=== PATIENT | female | born 1955 | race Caucasian/White ===

== ENCOUNTER 2023-05-24 09:42 | Day surgery (SDC) | payer OTHER ==
[2023-05-20 10:03] VITALS: BMI 28.1
[2023-05-24] MEDS ORDERED: CELECOXIB 200 MG CAPSULE ONE (10:36)
[2023-05-24] MEDS ORDERED: CEFAZOLIN 2 GM in DEXTROSE 5%-WATER - 50 ML IVPB ONE (11:30)
[2023-05-24] MEDS ORDERED: CELECOXIB 200 MG CAPSULE PO ONE (11:30)
[2023-05-24] MEDS ORDERED: BUPIVACAINE LIPOSOME/PF (EXPAREL) 266 MG/20 ML VIAL ONE (12:38)
[2023-05-24] MEDS ORDERED: BUPIVACAINE HCL/PF 0.5% (5MG/ML) 10 ML VIAL ONE (12:38)
[2023-05-24] MEDS ORDERED: MIDAZOLAM HCL 2 MG/2 ML SINGLE DOSE VIAL ONE (12:38)
[2023-05-24] MEDS ORDERED: VANCOMYCIN 1,000 MG VIAL (RESTRICTED TO ID ONLY) ONE (12:39)
[2023-05-24] MEDS ORDERED: ceFAZolin SODIUM 1 GM VIAL ONE ×2 (12:39→13:17)
[2023-05-24] MEDS ORDERED: TRANEXAMIC ACID 1000 MG/10 ML VIAL IVPUSH ONE (13:00)
[2023-05-24] MEDS ORDERED: DEXAMETHASONE SOD PHOSPHATE 4 MG/1 ML VIAL ONE (13:17)
[2023-05-24] MEDS ORDERED: TRANEXAMIC ACID 1000 MG/10 ML VIAL ONE (13:17)
[2023-05-24] MEDS ORDERED: ONDANSETRON 4 MG/2 ML VIAL ONE (13:17)
[2023-05-24] MEDS ORDERED: PROPOFOL 20 ML ONE ×2 (13:33→13:51)
[2023-05-24] MEDS ORDERED: ONDANSETRON 4 MG/2 ML VIAL IVPUSH PRN (13:58)
[2023-05-24] MEDS ORDERED: oxyCODONE HCL 5 MG TABLET PO PRN (13:59)
[2023-05-24] MEDS ORDERED: LACTATED RINGERS SOLUTION 1,000 ML IV SCH (14:00)
[2023-05-24] MEDS ORDERED: VANCOMYCIN 1,000 MG VIAL (RESTRICTED TO ID ONLY) IVPB ONE (14:28)
[2023-05-24] MEDS ORDERED: ALBUTEROL SO4 HFA INHALER IH PRN (14:54)
[2023-05-24] MEDS ORDERED: BUDESONIDE/FORMETEROL FUMARATE 160/4.5 mcg INHALER IH PRN (14:54)
[2023-05-24] MEDS ORDERED: KETOROLAC TROMETHAMINE 30 MG/1 ML VIAL ONE (14:59)
[2023-05-24] MEDS ORDERED: ACETAMINOPHEN INJECTION 100 ML IVPB ONE (14:59)
[2023-05-24] MEDS: KETOROLAC TROMETHAMINE 30 MG/1 ML VIAL IVPUSH SCH ×3 (15:11→20:03)
[2023-05-24] MEDS: ACETAMINOPHEN 1000 MG/100 ML BAG IVPB ONE ×2 (15:14→17:14)
[2023-05-24] MEDS: oxyCODONE HCL 5 MG TABLET PO PRN (19:10)
[2023-05-24] MEDS: ACETAMINOPHEN 500 MG TABLET (FP) PO SCH (21:00)
[2023-05-24] MEDS ORDERED: SIMVASTATIN 5 MG PO SCH (22:00)
[2023-05-24] MEDS: SENNOSIDES/DOCUSATE COMBO (SENNA PLUS) TABLET (UD) PO SCH (22:13)
[2023-05-24] MEDS: CEFAZOLIN SODIUM 2 GM in DEXTROSE 5%-WATER 100 ML IVPB SCH (22:13)
[2023-05-24] MEDS: ATORVASTATIN CA 10 MG TABLET (FP) PO SCH (22:13)
[2023-05-24] MEDS: oxyCODONE HCL 10 MG SUSTAINED ACTING TABLET PO SCH (22:14)
[2023-05-25] MEDS: oxyCODONE HCL 5 MG TABLET PO PRN ×3 (01:13→13:47)
[2023-05-25] MEDS: ACETAMINOPHEN 500 MG TABLET (FP) PO SCH ×3 (03:38→22:31)
[2023-05-25] MEDS: CEFAZOLIN SODIUM 2 GM in DEXTROSE 5%-WATER 100 ML IVPB SCH (06:02)
[2023-05-25 08:26] LABS: HEMATOCRIT 40.7 % (32.4-45.2); HEMOGLOBIN 13.6 G/dL (10.7-15.3); MCH 31.7 pg (25.7-33.7); MCHC 33.5 g/dl (32.0-36.0); MEAN CELL VOLUME 94.6 fl (80-96); MEAN PLT VOLUME 7.7 fl (7.5-11.1); PLATELET COUNT 235.5 10^3/uL (134-434); RDW 12.7 % (11.6-15.6); WHITE BLOOD COUNT 15.3 10^3/uL (4.0-10.8)
[2023-05-25] MEDS: SENNOSIDES/DOCUSATE COMBO (SENNA PLUS) TABLET (UD) PO SCH ×2 (10:08→21:15)
[2023-05-25] MEDS: ASPIRIN 325 MG TABLET PO SCH (10:09)
[2023-05-25] MEDS: oxyCODONE HCL 10 MG SUSTAINED ACTING TABLET PO SCH ×2 (10:09→21:15)
[2023-05-25] MEDS: PANTOPRAZOLE 40 MG TABLET PO SCH (10:10)
[2023-05-25] MEDS: MULTIVITAMINS (DAILY MVI) TABLET (FP) PO SCH (10:10)
[2023-05-25] MEDS: ALBUTEROL SO4 2.5/IPRATROPIUM 0.5 INH SOL 3 ML VIAL.NEB. NEB SCH ×2 (13:47→21:16)
[2023-05-25] MEDS: ATORVASTATIN CA 10 MG TABLET (FP) PO SCH (21:15)
[2023-05-26] MEDS: ACETAMINOPHEN 500 MG TABLET (FP) PO SCH ×4 (06:31→15:42)
[2023-05-26] MEDS: SENNOSIDES/DOCUSATE COMBO (SENNA PLUS) TABLET (UD) PO SCH (08:59)
[2023-05-26] MEDS: PANTOPRAZOLE 40 MG TABLET PO SCH (08:59)
[2023-05-26] MEDS: MULTIVITAMINS (DAILY MVI) TABLET (FP) PO SCH (08:59)
[2023-05-26] MEDS: ASPIRIN 325 MG TABLET PO SCH (08:59)
[2023-05-26] MEDS: traMADol HCL 50 MG TABLET PO PRN ×2 (09:02→16:56)
[2023-05-26] MEDS: ALBUTEROL SO4 2.5/IPRATROPIUM 0.5 INH SOL 3 ML VIAL.NEB. NEB SCH ×3 (09:04→15:35)
[2023-05-26 09:45] LABS: HEMATOCRIT 39.8 % (32.4-45.2); HEMOGLOBIN 13.1 G/dL (10.7-15.3); MCH 31.4 pg (25.7-33.7); MCHC 32.9 g/dl (32.0-36.0); MEAN CELL VOLUME 95.3 fl (80-96); MEAN PLT VOLUME 8.3 fl (7.5-11.1); PLATELET COUNT 233.2 10^3/uL (134-434); RBC 4.18 10^6/uL (3.60-5.2); RDW 13.1 % (11.6-15.6); WHITE BLOOD COUNT 11.6 10^3/uL (4.0-10.8)
[2023-05-26 18:16] VITALS: BP 122/47; PULSE 106; RESP 17; TEMP 98.8
== END 2023-05-26 20:30 ==
LOC: FASUSAT 09:42 → FM/S 16:34 → FASUSAT 05-26 20:30
PROVIDERS: ATTEND Orthopaedic Surgery
PROC: 8E0Y0CZ Robotic Assisted Procedure of Lower Extremity, Open Approach (ICD-10-PCS; 2023-05-24)
PROC: 0SRD0JA Replacement of Left Knee Joint with Synthetic Substitute, Uncemented, Open Approach (ICD-10-PCS; principal; 2023-05-24 13:48)
DX: M17.12 Unilateral primary osteoarthritis, left knee (principal)
CPT/HCPCS: 20985; 27447; C1776; S2900; 36415; 71045-TC-FY; 73560-TC-LT-FY; 85027; 94640; 94760; 97010-GP; 97116-GP; 97162-GP; C1713